=== PATIENT | male | born 1975 | race Caucasian/White ===

== ENCOUNTER 2016-04-16 14:05 | Emergency (ER) | payer OTHER ==
--- NOTE | 2016-04-16 14:54 | ED CLINICAL REPORT ---
Clinical Report - Physicians/Mid Levels [facility] [address] [place] [place] [address] 04/16/2016 14:08 Patient: MARIA FERNANDA WEST Time Seen: 14:33; initial patient contact. Arrived- By private vehicle. Police present. Historian- patient. HISTORY OF PRESENT ILLNESS Chief Complaint: FALL. Location of injuries- head, right hand and left hand (palms of hands and laceration to the right forehead.). Occurred at work. 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 Fell. The patient complains of mild pain. No blow to the head, neck pain or loss of consciousness. REVIEW OF SYSTEMS No numbness, dizziness, loss of vision, hearing loss or chest pain. PAST HISTORY See nurses notes. Tetanus immunization status is up-to-date. Problems: Normal Exam. Needlestick Injury. Tetanus Status. Immunizations. Medications: None. Allergies: Penicillin. ADDITIONAL NOTES The nursing notes have been reviewed with agreement regarding the chief complaint, HPI, ROS, PMH and patient medications and allergies. PHYSICAL EXAM Vital Signs: 04/16/2016 14:54 BP: 126/79. HR: 80. RR: 18. O2 saturation: 98%. 04/16/2016 14:21 BP: 105/92. HR: 80. RR: 18. O2 saturation: 94%. Temp: 98.4 F. Have been reviewed. Appearance: Alert. Oriented X3. No acute distress. Head: Right frontal area: abrasion and superficial 1.0 cm laceration. No deformity. Eyes: Pupils equal, round and reactive to light. EOM intact. ENT: No dental injury. Neck: Painless ROM. Non-tender. CVS: Heart sounds normal. Pulses normal. Respiratory: Breath sounds normal. Chest nontender. Extremities: Right hand: subcutaneous 0.5 cm laceration and small and deep abrasion localized to the proximal and palmar aspect of the hand. Neurovascular intact distally. Left hand: small abrasion localized to the proximal and palmar aspect of the hand. Neurovascular intact distally. Right knee: mild tenderness and small abrasion located in the patella. Neurovascular intact distally. No joint effusion. No limitation in ROM. Left knee: small abrasion located in the patella. Neurovascular intact distally. No joint effusion. No limitation in ROM. No lower extremity edema. Neuro: Oriented X 3. No motor deficit. No sensory deficit. Reflexes normal. PROGRESS AND PROCEDURES PROCEDURES (abrasions were cleaned and dressed by the RN). Laceration Repair: Location: scalp. Wound depth/shape- subcutaneous and linear. Distal neuro/vascular/tendon status normal. Anesthesia provided using LET. Prepped with chlorhexidine. Wound explored, cleansed and examined to the base in bloodless field extensively with normal saline. Closure of skin. Skin adhesive used. Post-procedure: he is stable and there are no complications. Neuro-vascular status is intact distal to the wound (dermabond). Tetanus immunization up-to-date. Course of Care: Patient is stable. CLINICAL IMPRESSION Single superficial laceration to the scalp.No foreign body present. Multiple superficial abrasions to the scalp, head, right hand and right knee and left hand and left knee. Fall on same level by stumbling. INSTRUCTIONS Apply ice. Protect wound and keep wound area clean. (dermabond was applied to the scalp laceration. keep dry). Change dressing daily. You may wash wounds briefly, then dry. Apply bacitracin daily. No strenuous activity for two days as needed and until better. No dietary restrictions. Warnings: GENERAL WARNINGS: Return or contact your physician immediately if your condition worsens or changes unexpectedly, if not improving as expected, or if other problems arise. Follow-up: Follow up with your doctor Sunday if not well. Understanding of the discharge instructions verbalized by patient. (Electronically signed by Lupe Vergara PA-C 04/17/2016 0:09)
--- NOTE | 2016-04-16 14:54 | ED NURSING NOTES ---
Clinical Report - Nurses [facility] [address] [place] [place] [address] 04/16/2016 14:08 Patient: MARIA FERNANDA WEST TRIAGE Triage time 14:Apr 16 2016. Acuity: LEVEL 4. Chief Complaint: FALL while running, onto the ground and landed on their arms with hands extended; slipped (Running chasing a man who did not want to be arrested and slipped and fell.). KIMBERLY COMA SCORE: Kimberly Coma Scale: 15- eyes open spontaneously (4); best verbal response- oriented x 4 (5); best motor response- obeys commands (6). --14:30 Micheal Sinha R.N. 14:21 04/16/16. BP: 105/92. HR: 80. RR: 18. O2 saturation: 94%. Temp: 98.4 F. Pain level now 05/19. --14:30 Micheal Sinha R.N. Weight: 81.6 kg stated. Height/Length: 70 inches Per Patient. BMI: 25.8. --14:26 Micheal Sinha R.N. Medications None. --14:24 Micheal Sinha R.N. Allergies Penicillin. --14:25 Micheal Sinha R.N. History Historian: patient. This occurred just prior to arrival. No loss of consciousness. No alteration in mental status, dizziness, neck pain, extremity pain or back pain. No trouble walking, limited ROM present or difficulty breathing. Treatment RADIOACTIVITY TECHNICIAN: None. Trauma activation: Pre-hospital notification of patient arrival was not received. PAST MEDICAL HX: No history of diabetes mellitus, heart disease, stroke or hypertension. No history of dementia or osteoporosis. Immunizations: up-to-date. SOCIAL HX: Never smoker. Occasional alcohol use. No drug use. SELF HARM ASSESSMENT: A self harm assessment was performed. The patient answered "no" to the question "Have you recently felt down, depressed, or hopeless?" and "Do you have thoughts of harming or killing yourself?". FALL RISK ASSESSMENT: Fall risk assessment completed. No fall risk identified. NUTRITIONAL RISK ASSESSMENT: The nutritional risk assessment revealed no deficiencies. FUNCTIONAL ASSESSMENT: Functional assessment: no impairments noted. LEARNING NEEDS ASSESSMENT: The learning needs assessment revealed no barriers. ABUSE ASSESSMENT: Abuse assessment: (yes) The patient was asked "Do you feel safe in your home?". SKIN INTEGRITY ASSESSMENT: Skin integrity risk assessment completed. No skin integrity risk identified. --14:30 Micheal Sinha R.N. PROBLEMS: Normal Exam. Needlestick Injury. Tetanus Status. Immunizations. --14:25 Micheal Sinha R.N. ADDITIONAL SURGERIES: Knee Surgery. Tympanostomy Tubes. --14:25 Micheal Sinha R.N. Interventions ID and allergy band on patient. --14:30 Micheal Sinha R.N. PHYSICAL ASSESSMENT Ambulatory to room. GENERAL / NEURO / PSYCH: Alert. Oriented X 4. Appears in no acute distress. HEENT: Pupils equal, round and reactive to light. Right frontal area: laceration. Head non-tender. ( small abrasion of right head.). RESPIRATORY: Respirations not labored. Chest nontender. Breath sounds within normal limits. CVS: Normal heart rate and rhythm. Pulses within normal limits. Capillary refill less than 2 seconds. GI / : Abdomen soft and nontender. EXTREMITIES: Extremities exhibit normal ROM. Neuro-vascular status intact to the extremity. Right hand: abrasion. Left hand: abrasion. SKIN: Skin is warm and dry. ( Bilat palms missing skin and bilat knees.). --14:34 Micheal Sinha R.N. NURSING PROGRESS NOTES The initial plan of care for this patient includes an assessment with efforts to address patient positioning; impairment of the integumentary system. Call light placed in reach. Side rails up x 1. Bed placed in lowest position. Brakes of bed on. --14:34 Micheal Sinha R.N. Wound cleansed (bedetine and warm water to all wounds). --14:42 Rachelle Mancuso ER Tech1 ( Wound dressed after eval from provider.). --14:55 Micheal Sinha R.N. 14:54 04/16/16. BP: 126/79. HR: 80. RR: 18. O2 saturation: 98%. --14:55 Micheal Sinha R.N. DISPOSITION / DISCHARGE Departure time: 15:04 Apr 16 2016. Condition at departure: improved. No learning barriers present. Discharge instructions provided and reviewed with the patient. Reviewed warnings. Reviewed medication(s). Treatments reviewed. Patient verbalized understanding. Written instructions provided in Thai. The patient was discharged home and accompanied by family. He left the Emergency Department ambulatory and via private vehicle. Patient driving. --16:04 Micheal Sinha R.N. 14:54 04/16/16. BP: 126/79. HR: 80. RR: 18. O2 saturation: 98%. --16:04 Micheal Sinha R.N. Locked/Released at 04/16/2016 19:25 by Micheal Sinha R.N.
--- NOTE | 2016-04-16 14:54 | ED CLINICAL REPORT ---
Clinical Report - Physicians/Mid Levels [facility] [address] [place] [place] [address] 04/16/2016 14:08 Patient: MARIA FERNANDA WEST Time Seen: 14:33; initial patient contact. Arrived- By private vehicle. Police present. Historian- patient. HISTORY OF PRESENT ILLNESS Chief Complaint: FALL. Location of injuries- head, right hand and left hand (palms of hands and laceration to the right forehead.). Occurred at work. 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 Fell. The patient complains of mild pain. No blow to the head, neck pain or loss of consciousness. REVIEW OF SYSTEMS No numbness, dizziness, loss of vision, hearing loss or chest pain. PAST HISTORY See nurses notes. Tetanus immunization status is up-to-date. Problems: Normal Exam. Needlestick Injury. Tetanus Status. Immunizations. Medications: None. Allergies: Penicillin. ADDITIONAL NOTES The nursing notes have been reviewed with agreement regarding the chief complaint, HPI, ROS, PMH and patient medications and allergies. PHYSICAL EXAM Vital Signs: 04/16/2016 14:54 BP: 126/79. HR: 80. RR: 18. O2 saturation: 98%. 04/16/2016 14:21 BP: 105/92. HR: 80. RR: 18. O2 saturation: 94%. Temp: 98.4 F. Have been reviewed. Appearance: Alert. Oriented X3. No acute distress. Head: Right frontal area: abrasion and superficial 1.0 cm laceration. No deformity. Eyes: Pupils equal, round and reactive to light. EOM intact. ENT: No dental injury. Neck: Painless ROM. Non-tender. CVS: Heart sounds normal. Pulses normal. Respiratory: Breath sounds normal. Chest nontender. Extremities: Right hand: subcutaneous 0.5 cm laceration and small and deep abrasion localized to the proximal and palmar aspect of the hand. Neurovascular intact distally. Left hand: small abrasion localized to the proximal and palmar aspect of the hand. Neurovascular intact distally. Right knee: mild tenderness and small abrasion located in the patella. Neurovascular intact distally. No joint effusion. No limitation in ROM. Left knee: small abrasion located in the patella. Neurovascular intact distally. No joint effusion. No limitation in ROM. No lower extremity edema. Neuro: Oriented X 3. No motor deficit. No sensory deficit. Reflexes normal. PROGRESS AND PROCEDURES PROCEDURES (abrasions were cleaned and dressed by the RN). Laceration Repair: Location: scalp. Wound depth/shape- subcutaneous and linear. Distal neuro/vascular/tendon status normal. Anesthesia provided using LET. Prepped with chlorhexidine. Wound explored, cleansed and examined to the base in bloodless field extensively with normal saline. Closure of skin. Skin adhesive used. Post-procedure: he is stable and there are no complications. Neuro-vascular status is intact distal to the wound (dermabond). Tetanus immunization up-to-date. Course of Care: Patient is stable. CLINICAL IMPRESSION Single superficial laceration to the scalp.No foreign body present. Multiple superficial abrasions to the scalp, head, right hand and right knee and left hand and left knee. Fall on same level by stumbling. INSTRUCTIONS Apply ice. Protect wound and keep wound area clean. (dermabond was applied to the scalp laceration. keep dry). Change dressing daily. You may wash wounds briefly, then dry. Apply bacitracin daily. No strenuous activity for two days as needed and until better. No dietary restrictions. Warnings: GENERAL WARNINGS: Return or contact your physician immediately if your condition worsens or changes unexpectedly, if not improving as expected, or if other problems arise. Follow-up: Follow up with your doctor Sunday if not well. Understanding of the discharge instructions verbalized by patient. (Electronically signed by Lupe Vergara PA-C 04/17/2016 0:09)
--- NOTE | 2016-04-17 00:10 | ED MAR SUMMARY ---
..... Medication Administration Record [facility] [address] [place], [place] [id number] Patient: MARIA FERNANDA WEST Visit ID: [id number] 40y, M Weight: 81.6 kg Height/Length: 70 in BMI: 25.8 ALLERGIES: Penicillin
--- NOTE | 2016-04-17 00:10 | ED MED RECONCILIATION SUMMARY ---
Patient: MARIA FERNANDA WEST Medication Reconciliation Report [facility] VisitID: [id number] [address] [place] [address] 40y, M Registration Date/Time: 04/16/2016 Weight: 81.6 kg Height/Length: 70 in. BMI: 25.8 ALLERGIES: Penicillin The patient's Home Medications are listed below: NONE. The source(s) of the original Home Medication information: Not obtained. The following Medications were given to the patient in the Emergency Department: None. The following Medications were prescribed to the patient: None.
--- NOTE | 2016-04-17 00:10 | ED DISCHARGE INSTRUCTIONS ---
Patient: MARIA FERNANDA WEST General Instructions [facility] VisitID: [id number] [address] [place] [address] 40y, M Registration Date/Time: 04/16/2016 Single superficial laceration to the scalp.No foreign body present. Multiple superficial abrasions to the scalp, head, right hand and right knee and left hand and left knee. Fall on same level by stumbling. INSTRUCTIONS Apply ice. Protect wound and keep wound area clean. (dermabond was applied to the scalp laceration. keep dry). Change dressing daily. You may wash wounds briefly, then dry. Apply bacitracin daily. No strenuous activity for two days as needed and until better. No dietary restrictions. Warnings: GENERAL WARNINGS: Return or contact your physician immediately if your condition worsens or changes unexpectedly, if not improving as expected, or if other problems arise. Follow-up: Follow up with your doctor Sunday if not well. Understanding of the discharge instructions verbalized by patient. No strenuous activity for two days as needed and until better. (Electronically signed by Lupe Vergara PA-C 04/17/2016 0:09)
--- NOTE | 2016-04-17 00:10 | ED MED RECONCILIATION SUMMARY ---
Patient: MARIA FERNANDA WEST Medication Reconciliation Report [facility] VisitID: [id number] [address] [place] [address] 40y, M Registration Date/Time: 04/16/2016 Weight: 81.6 kg Height/Length: 70 in. BMI: 25.8 ALLERGIES: Penicillin The patient's Home Medications are listed below: NONE. The source(s) of the original Home Medication information: Not obtained. The following Medications were given to the patient in the Emergency Department: None. The following Medications were prescribed to the patient: None.
--- NOTE | 2016-04-17 00:10 | ED DISCHARGE INSTRUCTIONS ---
Patient: MARIA FERNANDA WEST General Instructions [facility] VisitID: [id number] [address] [address] 40y, M Registration Date/Time: 04/16/2016 Single superficial laceration to the scalp.No foreign body present. Multiple superficial abrasions to the scalp, head, right hand and right knee and left hand and left knee. Fall on same level by stumbling. INSTRUCTIONS Apply ice. Protect wound and keep wound area clean. (dermabond was applied to the scalp laceration. keep dry). Change dressing daily. You may wash wounds briefly, then dry. Apply bacitracin daily. No strenuous activity for two days as needed and until better. No dietary restrictions. Warnings: GENERAL WARNINGS: Return or contact your physician immediately if your condition worsens or changes unexpectedly, if not improving as expected, or if other problems arise. Follow-up: Follow up with your doctor Sunday if not well. Understanding of the discharge instructions verbalized by patient. No strenuous activity for two days as needed and until better. (Electronically signed by Lupe Vergara PA-C 04/17/2016 0:09)
--- NOTE | 2016-04-17 00:10 | ED MAR SUMMARY ---
..... Medication Administration Record [facility] [address], [place] [id number] Patient: MARIA FERNANDA WEST Visit ID: [id number] 40y, M Weight: 81.6 kg Height/Length: 70 in BMI: 25.8 ALLERGIES: Penicillin
== END 2016-04-16 15:10 | disposition home or self-care (01) ==
LOC: ED SRH 14:05
PROC: 0HQ0XZZ Repair Scalp Skin, External Approach (ICD-10-PCS; principal; 2016-04-16)
DX: S61.441A Puncture wound with foreign body of right hand, initial encounter (principal); S01.01XA Laceration without foreign body of scalp, initial encounter; W18.30XA Fall on same level, unspecified, initial encounter; W45.8XXA Other foreign body or object entering through skin, initial encounter; Z88.0 Allergy status to penicillin; Y93.9 Activity, unspecified; Y92.410 Unspecified street and highway as the place of occurrence of the external cause; Y99.0 Civilian activity done for income or pay
CPT/HCPCS: 82708

== ENCOUNTER 2016-04-16 16:21 | Emergency (ER) | payer OTHER ==
--- NOTE | 2016-04-16 17:28 | ED ORDER SUMMARY ---
..... Patient: MARIA FERNANDA WEST OrderSheet [facility] VisitID: [id number] [address] [place] [place] [address] 40y, M Registration Date/Time: 04/16/2016 ORDER SHEET Weight: 85.2 kg (stated) Allergies: Penicillin GENERAL ORDERS: MEDICATION ORDERS: LET Topical 1 application (NOW) (16:49 04/16/2016 Cornelius CONLEY) (17:05 Erica Gómez) IV FLUIDS: ORDER SHEET NOTES: [Electronically signed by Micheal Sinha R.N. (19:29 04/16/2016)] [Electronically signed by Lupe Vergara PA-C (00:14 04/17/2016)] [Electronically locked/signed by Micheal Sinha R.N. (19:29 04/16/2016)]
--- NOTE | 2016-04-16 17:28 | ED ORDER SUMMARY ---
..... Patient: MARIA FERNANDA WEST OrderSheet [facility] VisitID: [id number] [address] [place] [address] 40y, M Registration Date/Time: 04/16/2016 ORDER SHEET Weight: 85.2 kg (stated) Allergies: Penicillin GENERAL ORDERS: MEDICATION ORDERS: LET Topical 1 application (NOW) (16:49 04/16/2016 Cornelius CONLEY) (17:05 Erica Gómez) IV FLUIDS: ORDER SHEET NOTES: [Electronically signed by Micheal Sinha R.N. (19:29 04/16/2016)] [Electronically signed by Lupe Vergara PA-C (00:14 04/17/2016)] [Electronically locked/signed by Micheal Sinha R.N. (19:29 04/16/2016)]
--- NOTE | 2016-04-16 17:28 | ED NURSING NOTES ---
Clinical Report - Nurses [facility] [address] [place] [place] [place] [address] 04/16/2016 16:21 Patient: MARIA FERNANDA WEST TRIAGE Triage time 16:50 Apr 16 2016. Acuity: LEVEL 4. Chief Complaint: RECHECK OF WOUND. KIMBERLY COMA SCORE: Kimberly Coma Scale: 15- eyes open spontaneously (4); best verbal response- oriented x 4 (5); best motor response- obeys commands (6). --16:58 Micheal Sinha R.N. Acuity: LEVEL 4. --17:04 Micheal Sinha R.N. 17:02 04/16/16. BP: 125/76. HR: 91. RR: 18. O2 saturation: 99%. Temp: 98.2 F. --17:04 Micheal Sinha R.N. Weight: 85.2 kg stated. Height/Length: 70 inches Per Patient. BMI: 27. --16:57 Micheal Sinha R.N. Medications None. --16:56 Micheal Sinha R.N. Allergies Penicillin. --16:57 Micheal Sinha R.N. History Location: (right palm of hand still has a rock inside). He has had drainage from wound. Previous treatment: Previously seen in ED. ( Site was cleaned and dressed previous.). SOCIAL HX: Never smoker. Occasional alcohol use. No drug use. No infectious disease exposure. SELF HARM ASSESSMENT: A self harm assessment was performed. The patient answered "no" to the question "Have you recently felt down, depressed, or hopeless?" and "Do you have thoughts of harming or killing yourself?". FALL RISK ASSESSMENT: Fall risk assessment completed. No fall risk identified. NUTRITIONAL RISK ASSESSMENT: The nutritional risk assessment revealed no deficiencies. FUNCTIONAL ASSESSMENT: Functional assessment: no impairments noted. LEARNING NEEDS ASSESSMENT: The learning needs assessment revealed no barriers. ABUSE ASSESSMENT: Abuse assessment: (no). SKIN INTEGRITY ASSESSMENT: Skin integrity risk assessment completed. No skin integrity risk identified. --16:58 Micheal Sinha R.N. PROBLEMS: Abrasion(s). Fall. Normal Exam. Needlestick Injury. Tetanus Status. Immunizations. --16:57 Micheal Sinha R.N. ADDITIONAL SURGERIES: Knee Surgery. Tympanostomy Tubes. --16:57 Micheal Sinha R.N. Interventions ID band on patient. --16:58 Micheal Sinha R.N. ID band on patient. --17:04 Micheal Sinha R.N. PHYSICAL ASSESSMENT Ambulatory to room. ( Rock in right palm.). GENERAL / NEURO / PSYCH: Alert. Oriented X 4. Appears in no acute distress. Patient's nutrition appears within normal limits. EXTREMITIES: Extremity pulses are within normal limits. Capillary refill is less than 2 seconds in the extremities. Sensation intact in extremities. ROM of extremities within normal limits. SKIN: Skin is warm and dry. Healing wound. No signs or symptoms of infection. --17:00 Micheal Sinha R.N. NURSING PROGRESS NOTES Call light placed in reach. Bed placed in lowest position. Brakes of bed on. --17:01 Micheal Sinha R.N. 16:55 04/16/2016 LET Topical Topical Solution 1 application. Placed on a 2x2 gauze. Allergies verified and confirmed 5 rights. --17:05 Micheal Sinha R.N. DISPOSITION / DISCHARGE Departure time: 17:32 Apr 16 2016. Condition at departure: improved. No learning barriers present. Discharge instructions provided and reviewed with the patient. Reviewed warnings. Reviewed medication(s). Treatments reviewed. Patient verbalized understanding. Written instructions provided in Libyan. The patient was discharged home and accompanied by family. He left the Emergency Department ambulatory and via private vehicle. Family member driving. --17:32 Micheal Sinha R.N. 17:02 04/16/16. BP: 125/76. HR: 91. RR: 18. O2 saturation: 99%. Temp: 98.2 F. --17:32 Micheal Sinha R.N. 17:02 04/16/16. Pain level now 0/10. --17:46 Micheal Sinha R.N. Locked/Released at 04/16/2016 19:29 by Micheal Sinha R.N.
--- NOTE | 2016-04-16 17:28 | ED CLINICAL REPORT ---
Clinical Report - Physicians/Mid Levels [facility] [address] [place] [place] [address] 04/16/2016 16:21 Patient: MARIA FERNANDA WEST Time Seen: 1630. Arrived- By private vehicle. Historian- patient. HISTORY OF PRESENT ILLNESS Chief Complaint: Injury to the right hand. The injury happened just prior to arrival. Fell. Occurred at work and on a street. 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 he is here for re evaluation.). Patient is experiencing moderate pain. REVIEW OF SYSTEMS Foreign body is suspected (gravel in his palm) to the right hand. He has had tingling. All systems otherwise negative, except as recorded above. PAST HISTORY See nurses notes. The patient's dominant hand is the right. Tetanus immunization status is up-to-date. Medications: None. Allergies: Penicillin. SOCIAL HISTORY No drug use. ADDITIONAL NOTES The nursing notes have been reviewed with agreement regarding the chief complaint, HPI, ROS, PMH and patient medications and allergies. PHYSICAL EXAM Vital Signs: 04/16/2016 17:02 BP: 125/76. HR: 91. RR: 18. O2 saturation: 99%. Temp: 98.2 F. Have been reviewed. Appearance: Alert. Oriented X3. No acute distress. Extremities: Right hand: visualized foreign body localized to the proximal and palmar aspect of the hand. Neurovascular intact distally. (large rock embeded in the palm of the right hand). Hand and wrist exam otherwise negative. Extremities otherwise negative. Neuro, Vascular and Tendons: Sensation intact. PROGRESS AND PROCEDURES Removal of Soft Tissue Foreign Body: Time: 1635 PM. The foreign body was gravel. Located in the right hand. Prior to the procedure the risks, benefits and alternatives to the procedure were explained and consent was obtained. Topical anesthesia provided using LET (lidocaine, epinephrine and tetracaine). Wound prepped with chlorhexidine and sterile field employed. Wound explored. Foreign body visualized, palpated and removed using forceps. Wound irrigated extensively. The foreign body removed was deep. Sterile dressing consisting of 4x4 gauze was applied. Following the application of antibiotic ointment. Secured with tape and kerlix. Tetanus immunization up-to-date. Warnings provided regarding redness, swelling, pain, fever, drainage, bleeding and the possibility of a retained foreign body. Course of Care: Patient is stable. Symptoms much better. CLINICAL IMPRESSION Removal of deep soft tissue foreign body to the right hand. Puncture wound and laceration present. INSTRUCTIONS Protect wound and keep wound area clean. (as instructed). Limit use of your right hand for three days as needed and until better. Warnings: COMPLICATIONS: Complications from this condition are possible. Future problems may include infection, scarring and pain. It is important to follow up with a physician for further evaluation and treatment. Tetanus shot not given. Understanding of the discharge instructions verbalized by patient. (Electronically signed by Lupe Vergara PA-C 04/17/2016 0:14)
--- NOTE | 2016-04-16 17:28 | ED CLINICAL REPORT ---
Clinical Report - Physicians/Mid Levels [facility] [address] [place] [place] [address] 04/16/2016 16:21 Patient: MARIA FERNANDA WEST Time Seen: 1630. Arrived- By private vehicle. Historian- patient. HISTORY OF PRESENT ILLNESS Chief Complaint: Injury to the right hand. The injury happened just prior to arrival. Fell. Occurred at work and on a street. 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 he is here for re evaluation.). Patient is experiencing moderate pain. REVIEW OF SYSTEMS Foreign body is suspected (gravel in his palm) to the right hand. He has had tingling. All systems otherwise negative, except as recorded above. PAST HISTORY See nurses notes. The patient's dominant hand is the right. Tetanus immunization status is up-to-date. Medications: None. Allergies: Penicillin. SOCIAL HISTORY No drug use. ADDITIONAL NOTES The nursing notes have been reviewed with agreement regarding the chief complaint, HPI, ROS, PMH and patient medications and allergies. PHYSICAL EXAM Vital Signs: 04/16/2016 17:02 BP: 125/76. HR: 91. RR: 18. O2 saturation: 99%. Temp: 98.2 F. Have been reviewed. Appearance: Alert. Oriented X3. No acute distress. Extremities: Right hand: visualized foreign body localized to the proximal and palmar aspect of the hand. Neurovascular intact distally. (large rock embeded in the palm of the right hand). Hand and wrist exam otherwise negative. Extremities otherwise negative. Neuro, Vascular and Tendons: Sensation intact. PROGRESS AND PROCEDURES Removal of Soft Tissue Foreign Body: Time: 1635 PM. The foreign body was gravel. Located in the right hand. Prior to the procedure the risks, benefits and alternatives to the procedure were explained and consent was obtained. Topical anesthesia provided using LET (lidocaine, epinephrine and tetracaine). Wound prepped with chlorhexidine and sterile field employed. Wound explored. Foreign body visualized, palpated and removed using forceps. Wound irrigated extensively. The foreign body removed was deep. Sterile dressing consisting of 4x4 gauze was applied. Following the application of antibiotic ointment. Secured with tape and kerlix. Tetanus immunization up-to-date. Warnings provided regarding redness, swelling, pain, fever, drainage, bleeding and the possibility of a retained foreign body. Course of Care: Patient is stable. Symptoms much better. CLINICAL IMPRESSION Removal of deep soft tissue foreign body to the right hand. Puncture wound and laceration present. INSTRUCTIONS Protect wound and keep wound area clean. (as instructed). Limit use of your right hand for three days as needed and until better. Warnings: COMPLICATIONS: Complications from this condition are possible. Future problems may include infection, scarring and pain. It is important to follow up with a physician for further evaluation and treatment. Tetanus shot not given. Understanding of the discharge instructions verbalized by patient. (Electronically signed by Lupe Vergara PA-C 04/17/2016 0:14)
--- NOTE | 2016-04-16 17:28 | ED NURSING NOTES ---
Clinical Report - Nurses [place] [address] [place] [address] 04/16/2016 16:21 Patient: MARIA FERNANDA WEST TRIAGE Triage time 16:50 Apr 16 2016. Acuity: LEVEL 4. Chief Complaint: RECHECK OF WOUND. KIMBERLY COMA SCORE: Kimberly Coma Scale: 15- eyes open spontaneously (4); best verbal response- oriented x 4 (5); best motor response- obeys commands (6). --16:58 Micheal Sinha R.N. Acuity: LEVEL 4. --17:04 Micheal Sinha R.N. 17:02 04/16/16. BP: 125/76. HR: 91. RR: 18. O2 saturation: 99%. Temp: 98.2 F. --17:04 Micheal Sinha R.N. Weight: 85.2 kg stated. Height/Length: 70 inches Per Patient. BMI: 27. --16:57 Micheal Sinha R.N. Medications None. --16:56 Micheal Sinha R.N. Allergies Penicillin. --16:57 Micheal Sinha R.N. History Location: (right palm of hand still has a rock inside). He has had drainage from wound. Previous treatment: Previously seen in ED. ( Site was cleaned and dressed previous.). SOCIAL HX: Never smoker. Occasional alcohol use. No drug use. No infectious disease exposure. SELF HARM ASSESSMENT: A self harm assessment was performed. The patient answered "no" to the question "Have you recently felt down, depressed, or hopeless?" and "Do you have thoughts of harming or killing yourself?". FALL RISK ASSESSMENT: Fall risk assessment completed. No fall risk identified. NUTRITIONAL RISK ASSESSMENT: The nutritional risk assessment revealed no deficiencies. FUNCTIONAL ASSESSMENT: Functional assessment: no impairments noted. LEARNING NEEDS ASSESSMENT: The learning needs assessment revealed no barriers. ABUSE ASSESSMENT: Abuse assessment: (no). SKIN INTEGRITY ASSESSMENT: Skin integrity risk assessment completed. No skin integrity risk identified. --16:58 Micheal Sinha R.N. PROBLEMS: Abrasion(s). Fall. Normal Exam. Needlestick Injury. Tetanus Status. Immunizations. --16:57 Micheal Sinha R.N. ADDITIONAL SURGERIES: Knee Surgery. Tympanostomy Tubes. --16:57 Micheal Sinha R.N. Interventions ID band on patient. --16:58 Micheal Sinha R.N. ID band on patient. --17:04 Micheal Sinha R.N. PHYSICAL ASSESSMENT Ambulatory to room. ( Rock in right palm.). GENERAL / NEURO / PSYCH: Alert. Oriented X 4. Appears in no acute distress. Patient's nutrition appears within normal limits. EXTREMITIES: Extremity pulses are within normal limits. Capillary refill is less than 2 seconds in the extremities. Sensation intact in extremities. ROM of extremities within normal limits. SKIN: Skin is warm and dry. Healing wound. No signs or symptoms of infection. --17:00 Micheal Sinha R.N. NURSING PROGRESS NOTES Call light placed in reach. Bed placed in lowest position. Brakes of bed on. --17:01 Micheal Sinha R.N. 16:55 04/16/2016 LET Topical Topical Solution 1 application. Placed on a 2x2 gauze. Allergies verified and confirmed 5 rights. --17:05 Micheal Sinha R.N. DISPOSITION / DISCHARGE Departure time: 17:32 Apr 16 2016. Condition at departure: improved. No learning barriers present. Discharge instructions provided and reviewed with the patient. Reviewed warnings. Reviewed medication(s). Treatments reviewed. Patient verbalized understanding. Written instructions provided in [place]. The patient was discharged home and accompanied by family. He left the Emergency Department ambulatory and via private vehicle. Family member driving. --17:32 Micheal Sinha R.N. 17:02 04/16/16. BP: 125/76. HR: 91. RR: 18. O2 saturation: 99%. Temp: 98.2 F. --17:32 Micheal Sinha R.N. 17:02 04/16/16. Pain level now 0/10. --17:46 Micheal Sinha R.N. Locked/Released at 04/16/2016 19:29 by Micheal Sinha R.N.
--- NOTE | 2016-04-17 00:15 | ED DISCHARGE INSTRUCTIONS ---
Patient: MARIA FERNANDA WEST General Instructions [facility] VisitID: [id number] [address] [place] [place] [address] 40y, M Registration Date/Time: 04/16/2016 Removal of deep soft tissue foreign body to the right hand. Puncture wound and laceration present. INSTRUCTIONS Protect wound and keep wound area clean. (as instructed). Limit use of your right hand for three days as needed and until better. Warnings: COMPLICATIONS: Complications from this condition are possible. Future problems may include infection, scarring and pain. It is important to follow up with a physician for further evaluation and treatment. Tetanus shot not given. Understanding of the discharge instructions verbalized by patient. Limit use of your right hand for three days as needed and until better. (Electronically signed by Lupe Vergara PA-C 04/17/2016 0:14)
--- NOTE | 2016-04-17 00:15 | ED MED RECONCILIATION SUMMARY ---
Patient: MARIA FERNANDA WEST Medication Reconciliation Report [facility] VisitID: [id number] [address] [place] [place] [address] 40y, M Registration Date/Time: 04/16/2016 Weight: 85.2 kg Height/Length: 70 in. BMI: 27.0 ALLERGIES: Penicillin The patient's Home Medications are listed below: NONE. The source(s) of the original Home Medication information: Not obtained. The following Medications were given to the patient in the Emergency Department: LET [Topical] Topical 1 application, administered: 04/16/2016 4:55:00 PM The following Medications were prescribed to the patient: None.
--- NOTE | 2016-04-17 00:15 | ED MAR SUMMARY ---
..... Medication Administration Record [facility] [address] [place] [place] [address] Patient: MARIA FERNANDA WEST Visit ID: [id number] 40y, M Weight: 85.2 kg Height/Length: 70 in BMI: 27 ALLERGIES: Penicillin Given 16:55 04/16/2016 Micheal Sinha R.N. Medication Administered: LET [TOPICAL], Dose: 1 application Topical Solution Topical. Medication Ordered: LET Topical 1 application (NOW).
--- NOTE | 2016-04-17 00:15 | ED DISCHARGE INSTRUCTIONS ---
Patient: MARIA FERNANDA WEST General Instructions [facility] VisitID: [id number] [address] [place] [address] 40y, M Registration Date/Time: 04/16/2016 Removal of deep soft tissue foreign body to the right hand. Puncture wound and laceration present. INSTRUCTIONS Protect wound and keep wound area clean. (as instructed). Limit use of your right hand for three days as needed and until better. Warnings: COMPLICATIONS: Complications from this condition are possible. Future problems may include infection, scarring and pain. It is important to follow up with a physician for further evaluation and treatment. Tetanus shot not given. Understanding of the discharge instructions verbalized by patient. Limit use of your right hand for three days as needed and until better. (Electronically signed by Lupe Vergara PA-C 04/17/2016 0:14)
--- NOTE | 2016-04-17 00:15 | ED MED RECONCILIATION SUMMARY ---
Patient: MARIA FERNANDA WEST Medication Reconciliation Report [facility] VisitID: [id number] [address] [place] [address] 40y, M Registration Date/Time: 04/16/2016 Weight: 85.2 kg Height/Length: 70 in. BMI: 27.0 ALLERGIES: Penicillin The patient's Home Medications are listed below: NONE. The source(s) of the original Home Medication information: Not obtained. The following Medications were given to the patient in the Emergency Department: LET [Topical] Topical 1 application, administered: 04/16/2016 4:55:00 PM The following Medications were prescribed to the patient: None.
--- NOTE | 2016-04-17 00:15 | ED MAR SUMMARY ---
..... Medication Administration Record [facility] [address] [place] [address] Patient: MARIA FERNANDA WEST Visit ID: [id number] 40y, M Weight: 85.2 kg Height/Length: 70 in BMI: 27 ALLERGIES: Penicillin Given 16:55 04/16/2016 Micheal Sinha R.N. Medication Administered: LET [TOPICAL], Dose: 1 application Topical Solution Topical. Medication Ordered: LET Topical 1 application (NOW).
== END 2016-04-16 17:50 | disposition home or self-care (01) ==
LOC: ED SRH 16:21
DX: S61.421D Laceration with foreign body of right hand, subsequent encounter (principal); S61.441 Puncture wound with foreign body of right hand; W19.XXXD Unspecified fall, subsequent encounter; Y93.89 Activity, other specified; Y92.410 Unspecified street and highway as the place of occurrence of the external cause; Y99.0 Civilian activity done for income or pay; Z88.0 Allergy status to penicillin